=== PATIENT | male | born 1970 | race Caucasian/White ===

== ENCOUNTER → 2016-06-18 | Outpatient (CLI) | payer BC ==
[~2016-06-18] MED LIST: /ARTH50TA PO; /ROPI5TA PO; /TAMS4CA PO; ACET500C PO; AMBI12.52 PO; ANDR1GEL TD; AUGM875T27 PO; BUPR200T PO; CARI350T19 PO; DOCU10ELUD PO; FENO160T10 PO; FLEX10TA2 PO; HYDR-3565 PO; LORA2TA PO; NEUR300C PO; NEXI40GR PO; SERO200T PO; SERO50TA PO; SOMA250T PO; VICO5TA PO; WELL100T PO; ZOCO20TA PO
== END | disposition home or self-care (01) ==
LOC: M EKG 15:13
PROVIDERS: ATTEND Nurse Practitioner Family
DX: I10 Essential (primary) hypertension (principal)

== ENCOUNTER → 2016-06-25 | Outpatient (CLI) | payer BC ==
[~2016-06-25] MED LIST changes: -CARI350T19 PO; +CARI350T20 PO; -HYDR-3565 PO; +HYDR-3719 PO
[2016-06-25 15:06] LABS: BASO # 0.1 K/mm3 (0.0-0.2); BASO % 1.7 % (0.0-1.0); EOS # 0.2 K/mm3 (0.0-0.50); EOS % 4.9 % (0.0-3.0); LARGE UNSTAINED CELL # 0.1 K/mm3 (0.0-0.4); LARGE UNSTAINED CELL % 2.2 % (0.0-4.0); LYMPH # 1.2 K/mm3 (1.5-4.5); LYMPH % 27.3 % (24.0-44.0); MEAN CORPUSCULAR HEMOGLOBIN 32.7 pg (27.0-33.0); MEAN CORPUSCULAR HGB CONC 34.1 g/dl (32.0-36.5); MONO # 0.3 K/mm3 (0.0-0.8); NEUTROPHILS # 2.4 K/mm3 (1.8-7.7); NEUTROPHILS % 56.9 % (36.0-66.0); PLATELET COUNT, AUTOMATED 155 k/mm3 (150-450); RED CELL DISTRIBUTION WIDTH 12.9 % (11.5-14.5); WHITE BLOOD COUNT 4.2 K/mm3 (4.0-10.0)
[2016-06-25 15:58] LABS: ALBUMIN 3.7 GM/DL (3.2-5.2); ALBUMIN/GLOBULIN RATIO 1.23 (1.00-1.93); ALKALINE PHOSPHATASE 71 U/L (45-117); ALT/SGPT 27 U/L (12-78); ANION GAP 6 MEQ/L (8-16); AST/SGOT 11 U/L (15-37); BILIRUBIN,TOTAL 0.6 MG/DL (0.2-1.0); BLOOD UREA NITROGEN 15 MG/DL (7-18); CALCIUM LEVEL 8.7 MG/DL (8.5-10.1); CARBON DIOXIDE LEVEL 32 MEQ/L (21-32); CHLORIDE LEVEL 106 MEQ/L (98-107); CHOLESTEROL LEVEL 187 MG/DL (<200); CREATININE FOR GFR 0.95 MG/DL (0.70-1.30); GLOMERULAR FILTRATION RATE > 60.0 (>60); GLUCOSE, FASTING 109 MG/DL (70-105); POTASSIUM SERUM 4.1 MEQ/L (3.5-5.1); SODIUM LEVEL 144 MEQ/L (136-145); TOTAL PROTEIN 6.7 GM/DL (6.4-8.2); TRIGLYCERIDES LEVEL 242 MG/DL (<150)
[2016-06-27 14:18] LABS: PSA TOTAL 1.4 ng/mL (0.0-4.0)
== END | disposition home or self-care (01) ==
LOC: M LAB 14:41
PROVIDERS: ATTEND Nurse Practitioner Family
DX: K76.89 Other specified diseases of liver (principal); N40.0 Benign prostatic hyperplasia without lower urinary tract symptoms; I10 Essential (primary) hypertension; G47.33 Obstructive sleep apnea (adult) (pediatric); E78.2 Mixed hyperlipidemia; H35.00 Unspecified background retinopathy

== ENCOUNTER → 2017-01-18 | Outpatient (CLI) | payer BC ==
[~2017-01-18] MED LIST changes: +CARI350T PO; -CARI350T20 PO
[2017-01-18 09:39] LABS: BASO % 0.8 % (0.0-1.0); EOS # 0.2 K/mm3 (0.0-0.50); EOS % 4.3 % (0.0-3.0); LARGE UNSTAINED CELL # 0.1 K/mm3 (0.0-0.4); LARGE UNSTAINED CELL % 3.2 % (0.0-4.0); LYMPH # 1.8 K/mm3 (1.5-4.5); LYMPH % 39.7 % (24.0-44.0); MEAN CORPUSCULAR HEMOGLOBIN 33.6 pg (27.0-33.0); MONO # 0.3 K/mm3 (0.0-0.8); MONO % 7.1 % (0.0-5.0); NEUTROPHILS % 44.8 % (36.0-66.0); PLATELET COUNT, AUTOMATED 205 k/mm3 (150-450); RED CELL DISTRIBUTION WIDTH 12.3 % (11.5-14.5); WHITE BLOOD COUNT 4.4 K/mm3 (4.0-10.0)
[2017-01-18 10:23] LABS: ALBUMIN 3.7 GM/DL (3.2-5.2); ALBUMIN/GLOBULIN RATIO 1.12 (1.00-1.93); ALKALINE PHOSPHATASE 76 U/L (45-117); ALT/SGPT 63 U/L (12-78); ANION GAP 8 MEQ/L (8-16); AST/SGOT 30 U/L (15-37); BILIRUBIN,TOTAL 0.6 MG/DL (0.2-1.0); BLOOD UREA NITROGEN 15 MG/DL (7-18); CALCIUM LEVEL 8.9 MG/DL (8.5-10.1); CARBON DIOXIDE LEVEL 32 MEQ/L (21-32); CHLORIDE LEVEL 105 MEQ/L (98-107); CHOLESTEROL LEVEL 175 MG/DL (<200); CREATININE FOR GFR 0.95 MG/DL (0.70-1.30); FREE T4 0.82 NG/DL (0.76-1.46); GLOMERULAR FILTRATION RATE > 60.0 (>60); GLUCOSE, FASTING 95 MG/DL (70-105); MAGNESIUM LEVEL 2.5 MG/DL (1.8-2.4); POTASSIUM SERUM 3.5 MEQ/L (3.5-5.1); SODIUM LEVEL 145 MEQ/L (136-145); TRIGLYCERIDES LEVEL 218 MG/DL (<150)
[2017-01-18 11:07] LABS: VITAMIN B12 LEVEL 795 PG/ML (247-911)
[2017-01-18 11:08] LABS: FOLATE > 24.0 NG/ML (>5.4)
== END ==
LOC: M LAB 08:49
PROVIDERS: ATTEND Nurse Practitioner Family
DX: I10 Essential (primary) hypertension (principal); R61 Generalized hyperhidrosis; Z98.84 Bariatric surgery status; R25.1 Tremor, unspecified

== ENCOUNTER 2017-06-13 11:22 | Emergency (ER) | payer BC ==
[2017-06-13] MEDS: PERCOCET 5MG/325MG TAB PO (12:03)
== END 2017-06-13 13:40 | disposition home or self-care (01) ==
LOC: M ED 11:22
DX: S82.832A Other fracture of upper and lower end of left fibula, initial encounter for closed fracture (principal); X50.9XXA Other and unspecified overexertion or strenuous movements or postures, initial encounter; Y92.480 Sidewalk as the place of occurrence of the external cause; Y93.01 Activity, walking, marching and hiking; Z79.899 Other long term (current) drug therapy; I10 Essential (primary) hypertension; R73.09 Other abnormal glucose; E78.00 Pure hypercholesterolemia, unspecified; K21.9 Gastro-esophageal reflux disease without esophagitis; F31.9 Bipolar disorder, unspecified; Z88.1 Allergy status to other antibiotic agents
CPT/HCPCS: 73610

== ENCOUNTER 2017-06-17 06:52 | Day surgery (SDC) | payer BC ==
[2017-06-17] MEDS ORDERED: ceFAZolin 2 GM/D5W 50 ML IV BAG (J0690 PER 500MG) As Ordered ×2 (07:13)
[2017-06-17] MEDS ORDERED: MIDAZOLAM INJ 2 MG/2 ML VIAL (J2250) As Ordered ×4 (07:57→08:03)
[2017-06-17] MEDS ORDERED: fentaNYL 100 MCG/2 ML INJECTION (J3010) As Ordered ×2 (07:57)
[2017-06-17] MEDS ORDERED: PROPOFOL 200 MG/20 ML VIAL As Ordered ×2 (08:03)
[2017-06-17] MEDS ORDERED: LIDOCAINE 2% INJ 100 MG/5 ML SDV (FOR ANES.) As Ordered ×2 (08:03)
[2017-06-17] MEDS ORDERED: fentaNYL 250 MCG/5 ML INJECTION (J3010) As Ordered ×2 (08:03)
[2017-06-17] MEDS: MIDAZOLAM INJ 2 MG/2 ML VIAL (J2250) IV ×2 (08:20)
[2017-06-17] MEDS: fentaNYL 100 MCG/2 ML INJECTION (J3010) IV ×2 (08:20)
[2017-06-17] MEDS ORDERED: oxyCODONE 5MG TAB PO ×2 (11:45)
[2017-06-17] MEDS ORDERED: FLEET ENEMA PR ×2 (11:45)
[2017-06-17] MEDS: LR 1,000 ML IV ×4 (14:34→21:55)
[2017-06-17] MEDS: ACETAMINOPHEN 500 MG TAB PO ×4 (14:34→21:23)
[2017-06-17] MEDS: VITAMIN D 1,000 INTERNATIONAL UNITS TABLET PO ×2 (14:39)
[2017-06-17] MEDS: oxyCODONE 5MG TAB PO ×4 (20:08→23:14)
[2017-06-17] MEDS: ASPIRIN 81 MG CHEW TABLET PO ×2 (20:08)
[2017-06-18] MEDS: MORPHINE 2 MG/ML 1ML SYRINGE IV ×4 (00:54→05:18)
[2017-06-18 01:19] LABS: TROPONIN I < 0.02 NG/ML (< 0.10)
[2017-06-18] MEDS: oxyCODONE 5MG TAB PO ×2 (04:03)
[2017-06-18] MEDS: ACETAMINOPHEN 500 MG TAB PO ×2 (06:05)
[2017-06-18] MEDS ORDERED: GI COCKTAIL 50ML BTL(HYOSCYAMINE/MAALOX/LIDOCAINE VISCOUS)(1:3:1) PO ×2 (07:00)
[2017-06-18] MEDS ORDERED: ALPRAZolam 0.5 MG TAB PO ×2 (07:00)
[2017-06-18] MEDS ORDERED: CALCIUM CARBONATE 500 MG CHEW U/D PO ×2 (07:00)
[2017-06-18 07:12] LABS: TROPONIN I < 0.02 NG/ML (< 0.10)
[2017-06-18 07:35] LABS: CPK CREATINE PHOSPHOKINASE 83 U/L (39-308); FREE THYROXINE INDEX 2.3 % (1.4-3.8); T UPTAKE 40 % (33-40); THYROXINE (T4) 5.7 UG/DL (4.5-12.0)
[2017-06-18] MEDS: GI COCKTAIL 50ML BTL(HYOSCYAMINE/MAALOX/LIDOCAINE VISCOUS)(1:3:1) PO ×2 (07:39)
[2017-06-18] MEDS: ASPIRIN 81 MG CHEW TABLET PO ×2 (07:40)
[2017-06-18] MEDS: VITAMIN D 1,000 INTERNATIONAL UNITS TABLET PO ×2 (07:41)
[2017-06-18] MEDS: ALPRAZolam 0.5 MG TAB PO ×2 (07:41)
[2017-06-18] MEDS: PANTOPRAZOLE 40MG TAB (PROTONIX) PO ×4 (07:41)
[2017-06-18] MEDS: LR 1,000 ML IV ×2 (09:44)
[2017-06-18] MEDS: INFLUENZA QUADRIVALENT PF VACCINE 0.5ML SYRINGE (90686) IM ×2 (10:30)
== END 2017-06-18 10:45 | disposition home or self-care (01) ==
LOC: M SDC 06:52 → M MS5PR 12:20
DX: S82.432A Displaced oblique fracture of shaft of left fibula, initial encounter for closed fracture (principal); W00.0XXA Fall on same level due to ice and snow, initial encounter; Y92.89 Other specified places as the place of occurrence of the external cause; Y93.89 Activity, other specified; Y99.8 Other external cause status; I10 Essential (primary) hypertension; G47.33 Obstructive sleep apnea (adult) (pediatric); M54.2 Cervicalgia; G89.29 Other chronic pain; F31.9 Bipolar disorder, unspecified; R51 Headache; Z98.84 Bariatric surgery status; Z87.442 Personal history of urinary calculi; Z98.1 Arthrodesis status
CPT/HCPCS: 27792

== ENCOUNTER → 2018-01-05 | Outpatient (CLI) | payer BC ==
[2018-01-05 09:44] LABS: HEMATOCRIT 43.6 % (42.0-52.0); HEMOGLOBIN 15.3 g/dl (13.5-17.5); MEAN CORPUSCULAR HEMOGLOBIN 33.5 pg (27.0-33.0); MEAN CORPUSCULAR HGB CONC 35.1 g/dl (32.0-36.5); MEAN CORPUSCULAR VOLUME 95.4 fl (80.0-96.0); PLATELET COUNT, AUTOMATED 177 10^3/uL (150-450); RED BLOOD COUNT 4.57 10^6/uL (4.30-6.10); WHITE BLOOD COUNT 4.6 10^3/uL (4.0-10.0)
[2018-01-05 10:20] LABS: ALBUMIN 3.7 GM/DL (3.2-5.2); ALBUMIN/GLOBULIN RATIO 1.03 (1.00-1.93); ALKALINE PHOSPHATASE 73 U/L (45-117); ALT/SGPT 32 U/L (12-78); ANION GAP 8 MEQ/L (8-16); AST/SGOT 17 U/L (7-37); BILIRUBIN,TOTAL 0.6 MG/DL (0.2-1.0); BLOOD UREA NITROGEN 11 MG/DL (7-18); CALCIUM LEVEL 8.8 MG/DL (8.5-10.1); CARBON DIOXIDE LEVEL 31 MEQ/L (21-32); CHLORIDE LEVEL 102 MEQ/L (98-107); CHOLESTEROL LEVEL 239 MG/DL (<200); CHOLESTEROL RISK RATIO 4.267 (<5); CREATININE FOR GFR 1.08 MG/DL (0.70-1.30); GLOMERULAR FILTRATION RATE > 60.0 (>60); GLUCOSE, FASTING 124 MG/DL (70-100); HDL CHOLESTEROL 56 MG/DL (>40); NON-HDL-C 183 MG/DL; POTASSIUM SERUM 3.3 MEQ/L (3.5-5.1); SODIUM LEVEL 141 MEQ/L (136-145); TOTAL PROTEIN 7.3 GM/DL (6.4-8.2); TRIGLYCERIDES LEVEL 541 MG/DL (<150)
[2018-01-08 08:36] LABS: QUANTIFERON GOLD TB Negative (Negative); TB Test (QFT) Antigen 0.03 IU/mL (.); TB Test (QFT) Antigen Minus Ni 0.01 IU/mL (.); TB Test (QFT) Mitogen >10.00 IU/mL (.); TB Test (QFT) Nil 0.02 IU/mL (.)
== END ==
LOC: M LAB 08:57
DX: R61 Generalized hyperhidrosis (principal); I10 Essential (primary) hypertension; E78.2 Mixed hyperlipidemia
CPT/HCPCS: 84443

== ENCOUNTER → 2018-01-06 | Outpatient (REF) | payer BC ==
[2018-01-11 14:10] LABS: DOPAMINE 185 ug/24 hr (0-510); DOPAMINE TOTAL URINE 112 ug/L (Undefined); EPINEPHRINE 5 ug/24 hr (0-20); EPINEPHRINE TOTAL URINE 3 ug/L (Undefined); METANEPHRINE TOTAL URINE 78 ug/L (Undefined); METANEPHRINE URINE 129 ug/24 hr (45-290); NOREPINEPHRINE 41 ug/24 hr (0-135); NOREPINEPHRINE TOTAL URINE 25 ug/L (Undefined); NORMETANEPHRINE TOTAL URINE 301 ug/L (Undefined); NORMETANEPHRINE URINE 497 ug/24 hr (82-500)
== END ==
LOC: M LAB REF 10:39
DX: R61 Generalized hyperhidrosis (principal)
CPT/HCPCS: 82384

== ENCOUNTER 2018-03-15 23:55 | Inpatient (IN) | payer BC ==
[2018-03-16 01:11] LABS: BASO % 0.9 % (0.0-1.0); EOS # 0.2 10^3/uL (0.0-0.50); EOS % 3.4 % (0.0-3.0); HEMATOCRIT 40.3 % (42.0-52.0); HEMOGLOBIN 14.1 g/dl (13.5-17.5); IMMATURE GRANULOCYTE % 0.2 % (0-3.0); LYMPH # 1.8 10^3/uL (1.5-4.5); MEAN CORPUSCULAR VOLUME 94.4 fl (80.0-96.0); MONO # 0.4 10^3/uL (0.0-0.8); MONO % 8.7 % (0.0-5.0); NEUTROPHILS % 45.8 % (36.0-66.0); PLATELET COUNT, AUTOMATED 155 10^3/uL (150-450); RED BLOOD COUNT 4.27 10^6/uL (4.30-6.10); RED CELL DISTRIBUTION WIDTH 12.5 % (11.5-14.5); WHITE BLOOD COUNT 4.5 10^3/uL (4.0-10.0)
[2018-03-16] MEDS: ASPIRIN 325 MG TAB PO ×2 (01:15→09:43)
[2018-03-16 01:21] LABS: INR 0.98; PROTHROMBIN TIME 13.1 SECONDS (12.1-14.4)
[2018-03-16 01:22] LABS: PARTIAL THROMBOPLASTIN TIME 29.7 SECONDS (25.4-37.6)
[2018-03-16 01:25] LABS: ANION GAP 11 MEQ/L (8-16); BLOOD UREA NITROGEN 10 MG/DL (7-18); CALCIUM LEVEL 8.2 MG/DL (8.5-10.1); CARBON DIOXIDE LEVEL 27 MEQ/L (21-32); CHLORIDE LEVEL 105 MEQ/L (98-107); CREATININE FOR GFR 0.91 MG/DL (0.70-1.30); GLOMERULAR FILTRATION RATE > 60.0 (>60); GLUCOSE, FASTING 85 MG/DL (70-100); POTASSIUM SERUM 3.3 MEQ/L (3.5-5.1); SODIUM LEVEL 143 MEQ/L (136-145)
[2018-03-16] MEDS ORDERED: ENTER DRUG NAME HERE (PATIENT'S OWN MED) PO ×2 (04:15)
[2018-03-16 04:48] LABS: HEMATOCRIT 39.6 % (42.0-52.0); HEMOGLOBIN 13.9 g/dl (13.5-17.5); MEAN CORPUSCULAR HEMOGLOBIN 33.2 pg (27.0-33.0); MEAN CORPUSCULAR HGB CONC 35.1 g/dl (32.0-36.5); MEAN CORPUSCULAR VOLUME 94.5 fl (80.0-96.0); PLATELET COUNT, AUTOMATED 152 10^3/uL (150-450); RED BLOOD COUNT 4.19 10^6/uL (4.30-6.10); RED CELL DISTRIBUTION WIDTH 12.2 % (11.5-14.5); WHITE BLOOD COUNT 4.1 10^3/uL (4.0-10.0)
[2018-03-16 05:23] LABS: ANION GAP 11 MEQ/L (8-16); BLOOD UREA NITROGEN 10 MG/DL (7-18); CALCIUM LEVEL 8.1 MG/DL (8.5-10.1); CARBON DIOXIDE LEVEL 27 MEQ/L (21-32); CHLORIDE LEVEL 106 MEQ/L (98-107); CREATININE FOR GFR 0.86 MG/DL (0.70-1.30); GLOMERULAR FILTRATION RATE > 60.0 (>60); GLUCOSE, FASTING 91 MG/DL (70-100); POTASSIUM SERUM 3.5 MEQ/L (3.5-5.1); SODIUM LEVEL 144 MEQ/L (136-145)
[2018-03-16 05:28] LABS: CK-MB VALUE MASS < 1.0 NG/ML (<3.6); CPK CREATINE PHOSPHOKINASE 92 U/L (39-308); MB/CK RELATIVE INDEX 1.09 (< OR =4); TROPONIN I < 0.02 NG/ML (< 0.10)
[2018-03-16] MEDS: ACETAMINOPHEN TAB 650MG DOSE (2X325MG) PO ×3 (06:09→20:07)
[2018-03-16] MEDS: ATORVASTATIN 20 MG TAB PO ×2 (06:10→09:00)
[2018-03-16] MEDS: LORazepam 2 MG/ML VIAL (J2060) IV ×2 (07:23→10:55)
[2018-03-16] MEDS ORDERED: ASPIRIN 81 MG ENTERIC TAB PO (09:00)
[2018-03-16] MEDS: TAMSULOSIN 0.4 MG CAP PO ×2 (09:42→20:06)
[2018-03-16] MEDS: buPROPion (WELLBUTRIN SR) 100 MG SR TAB PO (09:43)
[2018-03-16 14:13] LABS: CK-MB VALUE MASS < 1.0 NG/ML (<3.6); CPK CREATINE PHOSPHOKINASE 91 U/L (39-308); TROPONIN I < 0.02 NG/ML (< 0.10)
[2018-03-16] MEDS: QUEtiapine FUMARATE 200 MG TAB PO (20:06)
[2018-03-16 21:59] LABS: CK-MB VALUE MASS < 1.0 NG/ML (<3.6); CPK CREATINE PHOSPHOKINASE 79 U/L (39-308); MB/CK RELATIVE INDEX 1.27 (< OR =4); TROPONIN I < 0.02 NG/ML (< 0.10)
[2018-03-17] MEDS: ACETAMINOPHEN TAB 650MG DOSE (2X325MG) PO (04:07)
[2018-03-17 05:22] LABS: HEMATOCRIT 40.9 % (42.0-52.0); MEAN CORPUSCULAR HEMOGLOBIN 32.9 pg (27.0-33.0); MEAN CORPUSCULAR HGB CONC 34.2 g/dl (32.0-36.5); PLATELET COUNT, AUTOMATED 151 10^3/uL (150-450); RED BLOOD COUNT 4.26 10^6/uL (4.30-6.10); RED CELL DISTRIBUTION WIDTH 12.4 % (11.5-14.5); WHITE BLOOD COUNT 4.6 10^3/uL (4.0-10.0)
[2018-03-17 05:40] LABS: ANION GAP 7 MEQ/L (8-16); BLOOD UREA NITROGEN 12 MG/DL (7-18); CALCIUM LEVEL 8.2 MG/DL (8.5-10.1); CARBON DIOXIDE LEVEL 27 MEQ/L (21-32); CHLORIDE LEVEL 108 MEQ/L (98-107); CREATININE FOR GFR 0.92 MG/DL (0.70-1.30); GLOMERULAR FILTRATION RATE > 60.0 (>60); GLUCOSE, FASTING 83 MG/DL (70-100); POTASSIUM SERUM 3.4 MEQ/L (3.5-5.1); SODIUM LEVEL 142 MEQ/L (136-145)
[2018-03-17] MEDS: ASPIRIN 325 MG TAB PO (08:24)
[2018-03-17] MEDS: buPROPion (WELLBUTRIN SR) 100 MG SR TAB PO (08:25)
[2018-03-17] MEDS: ATORVASTATIN 20 MG TAB PO (08:25)
[2018-03-17] MEDS: TAMSULOSIN 0.4 MG CAP PO (08:25)
[2018-03-17] MEDS: PERCOCET 5MG/325MG TAB PO (09:15)
[2018-03-17] MEDS: INFLUENZA QUADRIVALENT PF VACCINE 0.5ML SYRINGE (90686) IM (09:16)
== END 2018-03-17 10:10 | disposition home health service (06) | DRG 46 ==
LOC: M ED 23:55 → M ED INP 03-16 04:05 → M ICU 03-16 05:30
DX: I65.22 Occlusion and stenosis of left carotid artery (principal); I10 Essential (primary) hypertension; F31.9 Bipolar disorder, unspecified; E78.5 Hyperlipidemia, unspecified; K21.9 Gastro-esophageal reflux disease without esophagitis; G57.93 Unspecified mononeuropathy of bilateral lower limbs; N40.0 Benign prostatic hyperplasia without lower urinary tract symptoms; G47.33 Obstructive sleep apnea (adult) (pediatric); G25.0 Essential tremor; F17.220 Nicotine dependence, chewing tobacco, uncomplicated; M54.2 Cervicalgia; Z98.1 Arthrodesis status; Z79.82 Long term (current) use of aspirin; Z79.899 Other long term (current) drug therapy; Z90.49 Acquired absence of other specified parts of digestive tract; Z87.442 Personal history of urinary calculi; Z98.84 Bariatric surgery status; Z91.19 Patient's noncompliance with other medical treatment and regimen

== ENCOUNTER → 2018-04-15 | Outpatient (CLI) | payer BC ==
[2018-04-15 13:31] LABS: HEMATOCRIT 40.4 % (42.0-52.0); HEMOGLOBIN 14.1 g/dl (13.5-17.5)
[2018-04-15 14:22] LABS: ESTIMATED AVERAGE GLUCOSE 108 MG/DL (60-110); HEMOGLOBIN A1c 5.4 %
[2018-04-15 14:37] LABS: CHOLESTEROL LEVEL 130 MG/DL (<200); CHOLESTEROL RISK RATIO 3.023 (<5); HDL CHOLESTEROL 43 MG/DL (>40); LDL CHOLESTEROL 41 MG/DL (<100); NON-HDL-C 87 MG/DL; TRIGLYCERIDES LEVEL 230 MG/DL (<150)
== END ==
LOC: M LAB 12:56
DX: Z13.1 Encounter for screening for diabetes mellitus (principal); E78.1 Pure hyperglyceridemia
CPT/HCPCS: 83036

== ENCOUNTER 2018-07-05 17:57 | Emergency (ER) | payer BC ==
[~2018-07-05] VITALS: Ht 172.7 cm; Wt 93.2 kg
[~2018-07-05 17:57] MED LIST changes: +ASPI1TAB PO; +ASPI1TAB20 PO; +ASPI81CH32 PO; +ASPI81CH40 PO; +ATOR1TAB21 PO; +B121000T PO; +CARI1TAB7 PO; -CARI350T PO; +CHLO125TA PO; +ERGO500014 PO; +FLINCHW16 PO; +FLOM0.4C39 PO; +OXYC15TA76 PO; +PANT40TA3 PO; +PERC5TAB12 PO; +RELP20TA PO; +REXU1TAB3 PO; +REXU1TAB4 PO; +VICO5TAB16 PO; +VITA50005 PO
[2018-07-05] MEDS ORDERED: CARI1TAB7 (18:07)
[2018-07-05] MEDS ORDERED: BUPR50TA PO (18:07)
[2018-07-05] MEDS ORDERED: METAL LOCK LOOP XX ONE (18:21)
--- NOTE | 2018-07-05 18:37 | REP ---
Clinical: Trauma. Technique: AP, lateral, bilateral oblique views of the right ankle. Findings: Arthritic and possibly old traumatic changes are appreciated. No acute fracture or dislocation identified. Ankle mortise appears intact. Mild soft tissue swelling. Impression: Arthritic changes and possible old injuries. No acute fracture or dislocation. Electronically Signed by Livan Nugent MD 07/05/2018 06:29 P
[2018-07-05] MEDS ORDERED: IBUPROFEN 600 MG TAB PO ONE (20:00)
--- NOTE | 2018-07-05 20:21 | REP ---
Clinical: Syncope/near-syncopal episode . Comparison: 06/18/2017 . Technique: PA and lateral. Findings: The mediastinum and cardiac silhouette are normal. The lung sesay are clear and without acute consolidation, effusion, or pneumothorax. The skeletal structures are intact and normal. Impression: 1. No acute cardiopulmonary process. Electronically Signed by Livan Nugent MD 07/05/2018 08:12 P
[2018-07-05 20:25] LABS: BASO # 0.1 10^3/uL (0.0-0.2); BASO % 0.9 % (0.0-1.0); EOS # 0.2 10^3/uL (0.0-0.50); EOS % 2.5 % (0.0-3.0); HEMATOCRIT 41.5 % (42.0-52.0); HEMOGLOBIN 14.5 g/dl (13.5-17.5); LYMPH % 21.3 % (24.0-44.0); MEAN CORPUSCULAR HEMOGLOBIN 32.8 pg (27.0-33.0); MEAN CORPUSCULAR HGB CONC 34.9 g/dl (32.0-36.5); MEAN CORPUSCULAR VOLUME 93.9 fl (80.0-96.0); MONO # 0.9 10^3/uL (0.0-0.8); MONO % 9.5 % (0.0-5.0); NEUTROPHILS # 6.1 10^3/uL (1.8-7.7); NEUTROPHILS % 65.5 % (36.0-66.0); PLATELET COUNT, AUTOMATED 170 10^3/uL (150-450); RED BLOOD COUNT 4.42 10^6/uL (4.30-6.10); WHITE BLOOD COUNT 9.3 10^3/uL (4.0-10.0)
[2018-07-05 20:39] LABS: INR 0.95; PROTHROMBIN TIME 12.8 SECONDS (12.1-14.4)
[2018-07-05 20:54] LABS: BLOOD UREA NITROGEN 12 MG/DL (7-18); CALCIUM LEVEL 8.4 MG/DL (8.5-10.1); CARBON DIOXIDE LEVEL 27 MEQ/L (21-32); CHLORIDE LEVEL 103 MEQ/L (98-107); CPK CREATINE PHOSPHOKINASE 173 U/L (39-308); ETHYL ALCOHOL (ETHANOL) 0.003 % (0.000-0.010); GLOMERULAR FILTRATION RATE > 60.0 (>60); GLUCOSE, FASTING 86 MG/DL (70-100); MB/CK RELATIVE INDEX 0.69 (< OR =4); POTASSIUM SERUM 3.6 MEQ/L (3.5-5.1); SODIUM LEVEL 140 MEQ/L (136-145); TROPONIN I < 0.02 NG/ML (< 0.10)
[2018-07-05] MEDS ORDERED: IBUP-1022 PO (21:15)
[2018-07-05 21:20] VITALS: BP 124/80
--- NOTE | 2018-07-06 09:29 | ECGEPIP ---
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
== END 2018-07-05 21:27 | disposition home or self-care (01) ==
LOC: M ED 17:57
DX: S93.401A Sprain of unspecified ligament of right ankle, initial encounter (principal); R55 Syncope and collapse; W19.XXXA Unspecified fall, initial encounter; Y92.89 Other specified places as the place of occurrence of the external cause; F10.10 Alcohol abuse, uncomplicated; F17.200 Nicotine dependence, unspecified, uncomplicated; Z88.1 Allergy status to other antibiotic agents; Z79.899 Other long term (current) drug therapy; Z79.82 Long term (current) use of aspirin; Z79.891 Long term (current) use of opiate analgesic
CPT/HCPCS: 71046; 73610; 80048; 82550; 82553; 84443; 84484; 85025; 85610; 93005; 93041; 99285; G0480

== ENCOUNTER → 2018-09-23 | Outpatient (CLI) | payer BC ==
[~2018-09-23] MED LIST changes: -/ARTH50TA PO; -/ROPI5TA PO; -/TAMS4CA PO; +ARTH1TAB4 PO; -ASPI1TAB PO; -ASPI81CH32 PO; +ASPI81CH33 PO; +ASPI81CH36 PO; -ASPI81CH40 PO; +ASPI81TA26 PO; +BUPR50TA PO; +CARI1TAB7; -DOCU10ELUD PO; +DOCU5LIQ PO; -ERGO500014 PO; +IBUP-1022 PO; +REQU1TAB15 PO; -VICO5TAB16 PO; +VICO5TAB17 PO; +VITA500045 PO
[2018-09-23 09:47] LABS: FOLLICLE STIMULATING HORMONE 5.2 mIU/mL (1.4-18.1); LUTEINIZING HORMONE 3.7 mIU/mL (1.5-9.3)
[2018-09-24 14:21] LABS: TESTOSTERONE FREE (DIRECT) 9.3 pg/mL (6.8-21.5)
== END ==
LOC: M LAB 08:30
PROVIDERS: ATTEND Nurse Practitioner Family
DX: Z87.898 Personal history of other specified conditions (principal); R68.82 Decreased libido
CPT/HCPCS: 36415; 83001; 83002; 84402; 84403; G0103

== ENCOUNTER → 2018-11-17 | Outpatient (CLI) | payer BC ==
[2018-11-17 09:51] LABS: HEMATOCRIT 40.8 % (42.0-52.0)
[2018-11-17 10:27] LABS: ALBUMIN 3.5 GM/DL (3.2-5.2); BILIRUBIN,DIRECT 0.1 MG/DL (0.0-0.2); BILIRUBIN,TOTAL 0.3 MG/DL (0.2-1.0); CHOLESTEROL RISK RATIO 2.435 (<5); TOTAL PROTEIN 7.1 GM/DL (6.4-8.2)
[2018-11-17 10:46] LABS: PROLACTIN 6.7 NG/ML (2.1-17.7)
[2018-11-17 10:48] LABS: ESTRADIOL 31.9 PG/ML (<39.8)
[2018-11-18 11:44] LABS: SEX HORMONE BINDING GLOBULIN 32.4 nmol/L (16.5-55.9); TESTOSTERONE FREE (DIRECT) 6.1 pg/mL (6.8-21.5)
== END ==
LOC: M LAB 08:49
PROVIDERS: ATTEND Nurse Practitioner Family
DX: E34.9 Endocrine disorder, unspecified (principal)

== ENCOUNTER → 2018-12-05 | Outpatient (CLI) | payer BC ==
[2018-12-05 09:10] LABS: HEMATOCRIT 43.9 % (42.0-52.0); HEMOGLOBIN 15.1 g/dl (13.5-17.5)
[2018-12-07 00:07] LABS: TESTOSTERONE FREE (DIRECT) 10.2 pg/mL (6.8-21.5)
== END ==
LOC: M LAB 08:39
PROVIDERS: ATTEND Nurse Practitioner Family
DX: E34.9 Endocrine disorder, unspecified (principal)

== ENCOUNTER → 2018-12-25 | Outpatient (CLI) | payer BC ==
[~2018-12-25] MED LIST changes: +ASPI-524 PO; -ASPI1TAB20 PO
[2018-12-25 09:30] LABS: HEMATOCRIT 43.3 % (42.0-52.0); HEMOGLOBIN 14.7 g/dl (13.5-17.5)
[2018-12-25 09:56] LABS: ALBUMIN 3.6 GM/DL (3.2-5.2); BILIRUBIN,DIRECT 0.1 MG/DL (0.0-0.2); BILIRUBIN,TOTAL 0.5 MG/DL (0.2-1.0); TOTAL PROTEIN 7.2 GM/DL (6.4-8.2)
[2018-12-26 14:07] LABS: TESTOSTERONE FREE (DIRECT) 5.9 pg/mL (6.8-21.5)
== END ==
LOC: M LAB 08:43
PROVIDERS: ATTEND Nurse Practitioner Family
DX: E34.9 Endocrine disorder, unspecified (principal)
CPT/HCPCS: 36415; 80076; 84402; 84403; 85014; 85018; G0103

== ENCOUNTER → 2019-01-13 | Outpatient (REF) | LOC: M LAB 20:08 ==